=== PATIENT | female | born 1950 | race Caucasian/White ===

== ENCOUNTER → 2017-02-11 | Outpatient (CLI) | payer OTHER | LOC: RAD 11:56 | DX: M25.78 Osteophyte, vertebrae (principal) ==

== ENCOUNTER 2018-02-06 12:44 | Emergency (ER) | payer OTHER ==
[~2018-02-06] VITALS: Ht 167.6 cm; Wt 81.7 kg
[2018-02-06] MEDS ORDERED: PAXIL10 MG PO (13:14)
[2018-02-06] MEDS ORDERED: COZAAR 25 MG TA25 M1 PO (13:15)
[2018-02-06] MEDS ORDERED: GLUCOTROL5 MG PO ×2 (13:15→13:22)
[2018-02-06] MEDS ORDERED: SIMVASTATIN40 MG PO (13:15)
[2018-02-06] MEDS ORDERED: OMEPRAZOLE 20 M20 M1 PO (13:15)
[2018-02-06] MEDS ORDERED: ALEVE220 MG PO (13:16)
[2018-02-06] MEDS ORDERED: NORVASC2.5 MG PO (13:16)
[2018-02-06] MEDS ORDERED: LEVEMIR SUBQ (13:17)
[2018-02-06] MEDS ORDERED: GERI-HYDROLAC140 GM TOP (13:17)
[2018-02-06] MEDS ORDERED: NOVOLOG100 UNIT/1 SUBQ (13:18)
[2018-02-06] MEDS ORDERED: OMEPRAZOLE 20 M20 MG PO (13:23)
[2018-02-06] MEDS ORDERED: ULTRAM 50MG TAB50 MG PO (13:39)
[2018-02-06] MEDS ORDERED: CLEOCIN HCL150 MG PO (13:39)
[2018-02-06 15:18] VITALS: BP 150/85
== END 2018-02-06 15:19 | disposition home or self-care (01) ==
LOC: ER 12:44
DX: S90.422A Blister (nonthermal), left great toe, initial encounter (principal); L08.89 Other specified local infections of the skin and subcutaneous tissue; G57.91 Unspecified mononeuropathy of right lower limb; Z88.1 Allergy status to other antibiotic agents; Z88.8 Allergy status to other drugs, medicaments and biological substances; Z91.048 Other nonmedicinal substance allergy status; X58.XXXA Exposure to other specified factors, initial encounter; Y92.89 Other specified places as the place of occurrence of the external cause; Y93.89 Activity, other specified; Y99.8 Other external cause status